=== PATIENT | female | born 1935 | race Caucasian/White ===

== ENCOUNTER 2017-09-01 13:35 | Emergency (ER) | payer MEDICARE ==
[~2017-09-01] VITALS: Ht 160 cm; Wt 47.5 kg
[~2017-09-01 13:35] MED LIST: ATOR10; AZIT250T74 PO; BIOTCAP PO; CALC500T42 PO; CRAN400T2 PO; HYDR-2768 PO; SYNT25TA PO
[2017-09-01 13:43] VITALS: BP 121/63; PULSE 61; RESP 16; TEMP 97.5; O2SAT 96
[2017-09-01] MEDS ORDERED: ASPI1TAB57 PO (13:53)
[2017-09-01] MEDS ORDERED: diphenhydrAMINE HCL 50 MG/ML VIAL IV PUSH ONE (14:00)
[2017-09-01] MEDS ORDERED: SODIUM CHLOR 0.9% 1000 ML INJ 1,000 ML IV ONE (14:00)
[2017-09-01] MEDS ORDERED: PROCHLORPERAZINE INJ 10 MG/2 ML VIAL IV PUSH ONE (14:00)
--- NOTE | 2017-09-01 14:08 | PD ---
HPI Chief Complaint: GI Complaint Time Seen by Provider: 13:50 Travel History International Travel<30 days: No Contact w/Intl Traveler<30days: No Traveled to known affect area: No History of Present Illness HPI This 82-year-old female is complaining of epigastric pain and vomiting. Arrival. Paramedics were called. She has been given 4 mg of intravenous Zofran by paramedics. She had a similar symptoms a few months ago. At that time she was at [facility] and had a CT scan which showed that she had a pancreatic mass. She has been seeing Dr. Cartagena in follow-up. On December [address] scan which showed the mass was unchanged at that time. It measured about 4 cm. It was noted to be a stable multiloculated septated cystic mass with central calcification in the distal body of the pancreas. She had an upper endoscopy about a year ago with Dr. Cartagena. Her daughter does say that she's had some weight loss. 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 PFS Past Medical History Heart Rhythm Problems: Yes (mitral valve prolapse) Cancer: Yes (jake breast cancer) Cardiovascular Problems: Yes ("leaky heart valve") High Cholesterol: Yes Diabetes: No Diminished Hearing: No Gastrointestinal Disorders: Yes (PANCREATIC MASS) Hepatitis: No Hiatal Hernia: No Hypertension: Yes Medical other: Yes (arthritis) Respiratory: No Immunizations Current: Yes Thyroid Disease: Yes Menopausal: Yes Past Surgical History Eye Surgery: Yes (CATARACT SX RIGHT EYE) Gynecologic Surgery: Yes (jake mastectomies) Pacemaker: No Other Surgery: Yes (BILAT MASTECTOMY) Social History Alcohol Use: Yes (OCCASIONAL) Tobacco Use: No Substance Use: No Allergies-Medications (Allergen,Severity, Reaction): Coded Allergies: brimonidine (Unverified Allergy, Severe, not effective, 09/01/17) vancomycin (Unverified Allergy, Severe, rash, 09/01/17) penicillin G (Unverified Allergy, Mild, 09/01/17) rash Reported Meds & Prescriptions Reported Meds & Active Scripts Active Zofran Odt (Ondansetron Odt) 4 Mg Tab 4 Mg SL Q6HR PRN Protonix (Pantoprazole Sodium) 40 Mg Tab 40 Mg PO DAILY Reported Aspirin 81 (Aspirin) 81 Mg Tabdr 81 Mg PO DAILY Review of Systems General / Constitutional: Positive: Weight Loss, No: Fever, Chills Eyes: No: Diploplia, Blurred Vision HENT: No: Headaches, Vertigo Cardiovascular: No: Chest Pain or Discomfort, Palpitations Respiratory: No: Cough, Shortness of Breath Gastrointestinal: Positive: Nausea, Vomiting, Abdominal Pain, No: Diarrhea Genitourinary: No: Urgency, Frequency Musculoskeletal: No: Myalgias, Arthralgias Skin: No Rash, No Itching Neurologic: Positive: Weakness Psychiatric: No: Anxiety Endocrine: No: Heat Intolerance Hematologic/Lymphatic: No: Easy Bruising Physical Exam Narrative GENERAL: Thin female SKIN: Focused skin assessment warm/dry. HEAD: Atraumatic. Normocephalic. EYES: Pupils equal and round. No scleral icterus. No injection or drainage. ENT: No nasal bleeding or discharge. Mucous membranes pink and moist. NECK: Trachea midline. No JVD. CARDIOVASCULAR: Regular rate and rhythm. No murmur appreciated. RESPIRATORY: No accessory muscle use. Clear to auscultation. Breath sounds equal bilaterally. GASTROINTESTINAL: Abdomen soft, there is epigastric tenderness without guarding or rigidity nondistended. Hepatic and splenic margins not palpable. MUSCULOSKELETAL: No obvious deformities. No clubbing. No cyanosis. No edema. NEUROLOGICAL: Awake and alert. No obvious cranial nerve deficits. Motor grossly within normal limits. Normal speech. PSYCHIATRIC: Appropriate mood and affect; insight and judgment normal. Data Data Last Documented VS Vital Signs Date Time Temp Pulse Resp B/P (MAP) Pulse Ox O2 Delivery O2 Flow Rate FiO2 09/01/17 16:55 09/01/17 15:12 60 18 98 Room Air 09/01/17 13:43 97.5 Orders Orders Complete Blood Count With Diff (09/01/17 13:50) Comprehensive Metabolic Panel (09/01/17 13:50) Lipase (09/01/17 13:50) Urinalysis - C+S If Indicated (09/01/17 13:50) Sodium Chlor 0.9% 1000 Ml Inj (Ns 1000 M (09/01/17 14:00) Prochlorperazine Inj (Compazine Inj) (09/01/17 14:00) Diphenhydramine Inj (Benadryl Inj) (09/01/17 14:00) Ct Abd/Pel W Iv Contrast(Rout) (09/01/17 14:04) Iohexol 350 Inj (Omnipaque 350 Inj) (09/01/17 15:04) Potassium Chlor 10 Meq Premix (Kcl 10 Me (09/01/17 15:15) Urine Culture (09/01/17 16:00) Ed Discharge Order (09/01/17 16:53) Labs Laboratory Tests Test 09/01/17 14:00 09/01/17 16:00 White Blood Count 10.9 TH/MM3 Red Blood Count 4.82 MIL/MM3 Hemoglobin 13.5 GM/DL Hematocrit 40.4 % Mean Corpuscular Volume 83.7 FL Mean Corpuscular Hemoglobin 28.1 PG Mean Corpuscular Hemoglobin Concent 33.5 % Red Cell Distribution Width 12.5 % Platelet Count 227 TH/MM3 Mean Platelet Volume 7.8 FL Neutrophils (%) (Auto) 79.6 % Lymphocytes (%) (Auto) 12.7 % Monocytes (%) (Auto) 6.2 % Eosinophils (%) (Auto) 1.0 % Basophils (%) (Auto) 0.5 % Neutrophils # (Auto) 8.6 TH/MM3 Lymphocytes # (Auto) 1.4 TH/MM3 Monocytes # (Auto) 0.7 TH/MM3 Eosinophils # (Auto) 0.1 TH/MM3 Basophils # (Auto) 0.1 TH/MM3 CBC Comment DIFF FINAL Differential Comment Blood Urea Nitrogen 19 MG/DL Creatinine 0.82 MG/DL Random Glucose 156 MG/DL Total Protein 7.2 GM/DL Albumin 3.5 GM/DL Calcium Level 9.1 MG/DL Alkaline Phosphatase 58 U/L Aspartate Amino Transf (AST/SGOT) 22 U/L Alanine Aminotransferase (ALT/SGPT) 22 U/L Total Bilirubin 0.6 MG/DL Sodium Level 137 MEQ/L Potassium Level 3.4 MEQ/L Chloride Level 100 MEQ/L Carbon Dioxide Level 30.1 MEQ/L Anion Gap 7 MEQ/L Estimat Glomerular Filtration Rate 66 ML/MIN Lipase 469 U/L Urine Collection Type CLEAN CATCH Urine Color YELLOW Urine Turbidity SL CLOUDY Urine pH 8.0 Urine Specific [place] 1.010 Urine Protein NEG mg/dL Urine Glucose (UA) NEG mg/dL Urine Ketones TRACE mg/dL Urine Occult Blood NEG Urine Nitrite NEG Urine Bilirubin NEG Urine Urobilinogen 0.2 MG/DL Urine Leukocyte Esterase MOD Urine RBC 0-3 /hpf Urine WBC 9-14 /hpf Urine Squamous Epithelial Cells 0-5 /hpf Urine Amorphous Sediment FEW Microscopic Urinalysis Comment CULTURE INDICATED Urine Collection Time 16:00 [facility] Medical Decision Making Medical Screen Exam Complete: Yes Emergency Medical Condition: Yes Medical Record Reviewed: Yes Differential Diagnosis Differential includes pancreatitis, ulcer disease, pancreatic mass Narrative Course Lab work and CT scan have been ordered. Disposition will be determined by oncoming physician Scripts Ondansetron Odt (Zofran Odt) 4 Mg Tab 4 MG SL Q6HR Y for Nausea/Vomiting, #10 TAB 0 Refills Prov: Jhonatan Bhakta MD 09/01/17 Pantoprazole (Protonix) 40 Mg Tab 40 MG PO DAILY for Reflux, #30 TAB 0 Refills Prov: Jhonatan Bhakta MD 09/01/17 Elijah Santizo MD September 01, 2017 14:08
[2017-09-01 14:11] LABS: AUTOMATED NEUTROPHIL # 8.6 TH/MM3 (1.8-7.7); BASOPHIL # 0.1 TH/MM3 (0-0.2); BASOPHIL % 0.5 % (0.0-2.0); EOSINOPHIL # 0.1 TH/MM3 (0-0.4); HEMATOCRIT 40.4 % (35.0-46.0); HEMOGLOBIN 13.5 GM/DL (11.6-15.3); LYMPH % 12.7 % (9.0-44.0); LYMPHOCYTE # 1.4 TH/MM3 (1.0-4.8); MEAN CELL VOLUME 83.7 FL (80.0-100.0); MEAN CORPUSCULAR HEMOGLOBIN 28.1 PG (27.0-34.0); MEAN CORPUSCULAR HGB CONC 33.5 % (32.0-36.0); MEAN PLATELET VOLUME 7.8 FL (7.0-11.0); MONO % 6.2 % (0.0-8.0); MONOCYTE # 0.7 TH/MM3 (0-0.9); NEUT % 79.6 % (16.0-70.0); PLATELET COUNT 227 TH/MM3 (150-450); RED BLOOD COUNT 4.82 MIL/MM3 (4.00-5.30); RED CELL DISTRIBUTION WIDTH 12.5 % (11.6-17.2); WHITE BLOOD COUNT 10.9 TH/MM3 (4.0-11.0)
[2017-09-01 14:24] LABS: CHLORIDE 100 MEQ/L (98-107); SODIUM (NA) 137 MEQ/L (136-145)
[2017-09-01 14:28] LABS: ALBUMIN 3.5 GM/DL (3.4-5.0); BICARBONATE 30.1 MEQ/L (21.0-32.0); BLOOD UREA NITROGEN 19 MG/DL (7-18); CALCIUM 9.1 MG/DL (8.5-10.1); GLUCOSE,RANDOM 156 MG/DL (74-106)
[2017-09-01 14:31] LABS: ALT (GPT) 22 U/L (10-53); AST (GOT) 22 U/L (15-37); CREATININE 0.82 MG/DL (0.50-1.00); GLOMERULAR FILTRATION RATE 66 ML/MIN (>89)
[2017-09-01 14:33] LABS: TOTAL BILIRUBIN ADULT 0.6 MG/DL (0.2-1.0); TOTAL PROTEIN 7.2 GM/DL (6.4-8.2)
[2017-09-01 14:34] LABS: ALKALINE PHOSPHATASE 58 U/L (45-117)
[2017-09-01] MEDS ORDERED: IOHEXOL 350 MG/ML 10 ML VIAL (for RAD DIAG) IVCONTRAST ONE (15:04)
[2017-09-01 15:12] VITALS: BP 112/63; PULSE 60; RESP 18; O2SAT 98
[2017-09-01] MEDS ORDERED: POTASSIUM CHLOR 10 MEQ PREMIX 100 ML IV ONE (15:15)
--- NOTE | 2017-09-01 15:34 | RADRPT ---
EXAM DATE/TIME: 09/01/2017 14:54 [place] COMPARISON: No previous studies available for comparison. EXTERNAL COMPARISON : [facility], April 20, 2017 INDICATIONS : Epigastric pain. Vomiting. IV CONTRAST: 85 cc Omnipaque 350 (iohexol) IV ORAL CONTRAST: No oral contrast ingested. RADIATION DOSE: 4.80 CTDIvol (mGy) MEDICAL HISTORY : Carcinoma, breast. Cardiovascular disease Hypertension.Cystic pancreatic mass. SURGICAL HISTORY : Mastectomy, bilateral. ENCOUNTER: Initial ACUITY: 1 day PAIN SCALE: 6/10 LOCATION: [facility] TECHNIQUE: Volumetric scanning of the abdomen and pelvis was performed. Using automated exposure control and ad justment of the mA and/or kV according to patient size, radiation dose was kept as low as reasonably achievable to obtain optimal diagnostic quality images. DICOM format image data is available electro nically for review and comparison. FINDINGS: LOWER LUNGS: The visualized lower lungs are clear. LIVER: Homogeneous density without lesion. There is no dilation of the biliary tree. Multiple gallstones ar e present. No wall thickening or inflammation is present. SPLEEN: Normal size without lesion. PANCREAS: There is a lobulated multiseptated cystic lesion within the tail of the pancreas measuring approximat arturo 3.9 x 2.4 x 3.3 cm. It contains a punctate central calcification has not significantly changed in size or appearance when compared to the 12/13/2016 examination. Main pancreatic duct is not dilated. KIDNEYS: Normal in size and shape. There is no mass, stone or hydronephrosis. ADRENAL GLANDS: Within normal limits. VASCULAR: There is no aortic aneurysm. There is severe atherosclerotic disease. BOWEL/MESENTERY: The stomach, small bowel, and colon demonstrate no acute abnormality. There is no free intraperitone al air or fluid. There is sigmoid diverticulosis. ABDOMINAL WALL: Within normal limits. RETROPERITONEUM: There is no lymphadenopathy. BLADDER: No wall thickening or mass. REPRODUCTIVE: Within normal limits. INGUINAL: There is no lymphadenopathy or hernia. MUSCULOSKELETAL: Degenerative changes are present within the lumbar spine. CONCLUSION: 1. No acute abnormality is identified to explain the clinical symptoms. No acute finding is seen. 2. Stable lobulated septated cystic lesion in the tail the pancreas measuring up to 3.9 cm. It has re mained stable in size and appearance when compared to the outside examination from November 2016. 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 3. Nonacute findings include cholelithiasis and severe atherosclerotic disease. Wilfrid Domingo MD on September 01, 2017 at 15:25 Board Certified Radiologist. This report was verified electronically.
--- NOTE | 2017-09-01 15:56 | PD ---
Physical Exam Narrative Patient was seen by ED physician and signed out to me. Data Data Last Documented VS Vital Signs Date Time Temp Pulse Resp B/P (MAP) Pulse Ox O2 Delivery O2 Flow Rate FiO2 09/01/17 15:12 60 18 112/63 (79) 98 Room Air 09/01/17 13:43 97.5 Orders Orders Complete Blood Count With Diff (09/01/17 13:50) Comprehensive Metabolic Panel (09/01/17 13:50) Lipase (09/01/17 13:50) Urinalysis - C+S If Indicated (09/01/17 13:50) Sodium Chlor 0.9% 1000 Ml Inj (Ns 1000 M (09/01/17 14:00) Prochlorperazine Inj (Compazine Inj) (09/01/17 14:00) Diphenhydramine Inj (Benadryl Inj) (09/01/17 14:00) Ct Abd/Pel W Iv Contrast(Rout) (09/01/17 14:04) Iohexol 350 Inj (Omnipaque 350 Inj) (09/01/17 15:04) Potassium Chlor 10 Meq Premix (Kcl 10 Me (09/01/17 15:15) Urine Culture (09/01/17 16:00) Labs Laboratory Tests Test 09/01/17 14:00 09/01/17 16:00 White Blood Count 10.9 TH/MM3 Red Blood Count 4.82 MIL/MM3 Hemoglobin 13.5 GM/DL Hematocrit 40.4 % Mean Corpuscular Volume 83.7 FL Mean Corpuscular Hemoglobin 28.1 PG Mean Corpuscular Hemoglobin Concent 33.5 % Red Cell Distribution Width 12.5 % Platelet Count 227 TH/MM3 Mean Platelet Volume 7.8 FL Neutrophils (%) (Auto) 79.6 % Lymphocytes (%) (Auto) 12.7 % Monocytes (%) (Auto) 6.2 % Eosinophils (%) (Auto) 1.0 % Basophils (%) (Auto) 0.5 % Neutrophils # (Auto) 8.6 TH/MM3 Lymphocytes # (Auto) 1.4 TH/MM3 Monocytes # (Auto) 0.7 TH/MM3 Eosinophils # (Auto) 0.1 TH/MM3 Basophils # (Auto) 0.1 TH/MM3 CBC Comment DIFF FINAL Differential Comment Blood Urea Nitrogen 19 MG/DL Creatinine 0.82 MG/DL Random Glucose 156 MG/DL Total Protein 7.2 GM/DL Albumin 3.5 GM/DL Calcium Level 9.1 MG/DL Alkaline Phosphatase 58 U/L Aspartate Amino Transf (AST/SGOT) 22 U/L Alanine Aminotransferase (ALT/SGPT) 22 U/L Total Bilirubin 0.6 MG/DL Sodium Level 137 MEQ/L Potassium Level 3.4 MEQ/L Chloride Level 100 MEQ/L Carbon Dioxide Level 30.1 MEQ/L Anion Gap 7 MEQ/L Estimat Glomerular Filtration Rate 66 ML/MIN Lipase 469 U/L Urine Collection Type CLEAN CATCH Urine Color YELLOW Urine Turbidity SL CLOUDY Urine pH 8.0 Urine Specific [place] 1.010 Urine Protein NEG mg/dL Urine Glucose (UA) NEG mg/dL Urine Ketones TRACE mg/dL Urine Occult Blood NEG Urine Nitrite NEG Urine Bilirubin NEG Urine Urobilinogen 0.2 MG/DL Urine Leukocyte Esterase MOD Urine RBC 0-3 /hpf Urine WBC 9-14 /hpf Urine Squamous Epithelial Cells 0-5 /hpf Urine Amorphous Sediment FEW Microscopic Urinalysis Comment CULTURE INDICATED Urine Collection Time 16:[address] [facility] Supervised Visit with PRINCESS: No Interpretation(s) Last Impressions Abdomen/Pelvis CT 09/01/17 1404 Signed Impressions: Service Date/Time: Friday, September 01, 2017 14:54 - CONCLUSION: 1. No acute abnormality is identified to explain the clinical symptoms. No acute finding is seen. 2. Stable lobulated septated cystic lesion in the tail the pancreas measuring up to 3.9 cm. It has remained stable in size and appearance when compared to the outside examination from November 2016. 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 3. Nonacute findings include cholelithiasis and severe atherosclerotic disease. Wilfrid Domingo MD 1552 PM. CBC within normal limits. Potassium 3.4. BUN 19. Lipase 469. Diagnosis Primary Impression: Abdominal pain Qualified Codes: R10.13 - Epigastric pain Additional Impression: Pancreatic mass Patient Instructions: General Instructions Additional Instruction: Tylenol for pain. Continue all medications. Follow-up with personal physician and counter waitress/waiter. Return if worse. Med/Other Pt SpecificInfo: No Change to Meds Scripts Ondansetron Odt (Zofran Odt) 4 Mg Tab 4 MG SL Q6HR Y for Nausea/Vomiting, #10 TAB 0 Refills Prov: Jhonatan Bhakta MD 09/01/17 Pantoprazole (Protonix) 40 Mg Tab 40 MG PO DAILY for Reflux, #30 TAB 0 Refills Prov: Jhonatan Bhakta MD 09/01/17 Disposition: 01 DISCHARGE HOME Condition: Stable Jhonatan Bhakta MD September 01, 2017 15:56
[2017-09-01 16:12] LABS: BILIRUBIN, URINE NEG (NEG); BLOOD, URINE NEG (NEG); GLUCOSE,URINE NEG (NEG); KETONE, URINE TRACE mg/dL (NEG); NITRITE,URINE NEG (NEG); URINE COLOR YELLOW (YELLW/STRAW); URINE LEUKOCYTE ESTERASE MOD (NEG)
[2017-09-01 16:25] LABS: AMORPHOUS SEDIMENT, URINE FEW; RBC, URINE 0-3 /hpf (0-3); SQUAMOUS EPITHELIAL CELL URINE 0-5 /hpf (0-5)
[2017-09-01] MEDS ORDERED: ZOFR4TAB3 SL (16:53)
[2017-09-01] MEDS ORDERED: PROT40TA PO (16:53)
== END 2017-09-01 17:07 | disposition home or self-care (01) ==
LOC: PHED 13:35
DX: R10.13 Epigastric pain (principal); M19.90 Unspecified osteoarthritis, unspecified site; K86.9 Disease of pancreas, unspecified; K80.20 Calculus of gallbladder without cholecystitis without obstruction; E78.00 Pure hypercholesterolemia, unspecified; I10 Essential (primary) hypertension; E07.9 Disorder of thyroid, unspecified; Z85.3 Personal history of malignant neoplasm of breast; Z79.82 Long term (current) use of aspirin
CPT/HCPCS: 74177; 80053; 81001; 83690; 85025; 87086; 96361; 96365; 96366; 96375; 99285; J0780; J1200; J3480; J7030; Q9967